=== PATIENT | male | born 1970 | race Caucasian/White ===

== ENCOUNTER 2019-01-12 07:28 | Emergency (ER) | payer OTHER ==
[2019-01-12 07:34] VITALS: RESP 18; TEMP 99.7
--- NOTE | 2019-01-12 07:52 | ED ---
General Adult HPI - General Chief complaint: Abdominal Pain Stated complaint: Groin pain Time Seen by Provider: 01/12/19 07:40 Source: patient, RN notes reviewed Mode of arrival: ambulatory Limitations: no limitations - History of Present Illness Initial comments: Patient is a 48-year-old male presented to the emergency room today with chief complaint of left testicular pain. Patient does admit that he had some discomfort when he was driving home last night. Patient states that he feels some pain radiating down the left testicle. He does admit that he does feel that it is a little swollen. Patient does admit that it's worse with movements and on palpation. Patient does admit that he noticed a bump over the summertime in the left groin area but had it checked out was told once that it could be a possible hernia. He states that the bump on away. He states he was not having any pain at that time. He states he does not feel any bump in the left groin at this time but does notice the pain down into left testicle. He denies any other complaints or symptoms. Denies any trauma or injury. Patient denies any recent fever, chills, shortness of breath, chest pain, back pain, abdominal pain, nausea or vomiting, numbness or tingling, dysuria or hematuria, headaches or visual changes, or any other complaints. - Related Data Home Medications Medication Instructions Recorded Confirmed Multivitamin [Multivitamins Adult 1 tab PO DAILY 01/12/19 01/12/19 Gummies] Previous Rx's Medication Instructions Recorded Ibuprofen [Motrin] 600 mg PO Q6HR PRN #40 day 01/12/19 Levofloxacin [Levaquin] 500 mg PO DAILY #10 tab 01/12/19 Allergies Allergy/AdvReac Type Severity Reaction Status Date / Time aspirin Allergy Rash/Hives Verified 01/12/19 08:03 Review of Systems ROS Statement: Those systems with pertinent positive or pertinent negative responses have been documented in the HPI. ROS Other: All systems not noted in ROS Statement are negative. Past Medical History Past Medical History: No Reported History History of Any Multi-Drug Resistant Organisms: None Reported Past Surgical History: Appendectomy, Orthopedic Surgery Additional Past Surgical History / Comment(s): right pinky finger surgery Past Psychological History: No Psychological Hx Reported Smoking Status: Former smoker Past Alcohol Use History: Occasional Past Drug Use History: None Reported General Exam - General Exam Comments Initial Comments: General: The patient is awake and alert, in no distress, and does not appear acutely ill. Eye: There is normal conjunctiva bilaterally. No signs of icterus. Ears, nose, mouth and throat: There are moist mucous membranes and no oral lesions. Neck: The neck is supple, there is no tenderness or JVD. Cardiovascular: There is a regular rate and rhythm. No murmur, rub or gallop is appreciated. Respiratory: Lungs are clear to auscultation, respirations are non-labored, breath sounds are equal. No wheezes, stridor, rales, or rhonchi. Gastrointestinal: Soft, non-distended, non-tender abdomen without masses or organomegaly noted. There is no rebound or guarding present. No CVA tenderness. Musculoskeletal: Normal ROM, no tenderness. Neurological: A&O x 3. CN II-XII intact, There are no obvious motor or sensory deficits. Coordination appears grossly intact. Speech is normal. Skin: Skin is warm and dry and no rashes or lesions are noted. Psychiatric: Cooperative, appropriate mood & affect, normal judgment. : Circumcised male. No lesions. Mild redness and mild swelling to the left testicle. Mildly tender on palpation. Limitations: no limitations Course Vital Signs 01/12/19 07:29 Temperature 99.7 F H Pulse Rate 100 Respiratory 18 Rate Blood Pressure 139/62 O2 Sat by Pulse 99 Oximetry Medical Decision Making - Medical Decision Making Patient's ultrasound reviewed and does show evidence for an epididymitis. No sign for torsion. Urinalysis does have 20 white cells. Patient does admit he is not worried about STDs and was discussed about treatment. Patient will be given doses of ceftriaxone and azithromycin here in the emergency room to cover. Cultures are pending. Patient will be started on antibiotics of Levaquin to cover for epididymitis. Patient advised following up with the family physician also given information for urology. Advised return for any other concerns. - Lab Data Lab Results 01/12/19 Range/Units 07:59 Urine Color Yellow Urine Appearance Clear (Clear) Urine pH 7.0 (5.0-8.0) Ur Specific [place] 1.018 (1.001-1.035) Urine Protein Negative (Negative) Urine Glucose (UA) Negative (Negative) Urine Ketones Negative (Negative) Urine Blood Small H (Negative) Urine Nitrite Negative (Negative) Urine Bilirubin Negative (Negative) Urine Urobilinogen <2.0 (<2.0) mg/dL Ur Leukocyte Esterase Moderate H (Negative) Urine RBC 6 H (0-5) /hpf Urine WBC 22 H (0-5) /hpf Urine Bacteria Occasional H (None) /hpf Urine Mucus Rare H (None) /hpf Disposition Clinical Impression: Epididymitis Disposition: HOME SELF-CARE Condition: Good Instructions (If sedation given, give patient instructions): Epididymitis (ED) Additional Instructions: Please follow up with family doctor in the next two days. Use medication as prescribed and return to the ER if any symptoms increase or worsen. Prescriptions: Levofloxacin [Levaquin] 500 mg PO DAILY #10 tab Ibuprofen [Motrin] 600 mg PO Q6HR PRN #40 day PRN Reason: Pain Is patient prescribed a controlled substance at d/c from ED?: No Referrals: None,Stated [Primary Care Provider] - 1-2 days Hossein Chandra MD [STAFF PHYSICIAN] - 1-2 days Time of Disposition: 09:44
[2019-01-12 08:23] LABS: Appearance,Urine Clear (Clear); Bacteria,Urine Occasional /hpf; Bilirubin,Urine Negative (Negative); Blood,Urine Small (Negative); Color,Urine Yellow; Glucose,Urine (UA) Negative (Negative); Ketones,Urine Negative (Negative); Leukocyte Esterase,Urine Moderate (Negative); Mucus,Urine Rare /hpf; Nitrite,Urine Negative (Negative); Protein,Urine Negative (Negative); RBC,Urine 6 /hpf (0-5); Specific Gravity,Urine 1.018 (1.001-1.035); Urobilinogen,Urine <2.0 mg/dL (<2.0); WBC,Urine 22 /hpf (0-5)
--- NOTE | 2019-01-12 09:04 | US ---
EXAMINATION TYPE: US scrotum with doppler. Grayscale and color Doppler Duplex imaging performed of t he scrotum. DATE OF EXAM: 01/12/2019 COMPARISON: NONE CLINICAL HISTORY: Pain. Pt states left testicle pain and swelling x 1 day EXAM MEASUREMENTS: TESTICLES: Right Testicle: 4.3 x 1.9 x 2.9 cm Left Testicle: 4.2 x 1.7 x 2.8 cm EPIDIDYMIS HEAD: Right Epididymis: 0.7 cm Left Epididymis: Enlarged, heterogeneous, hypervascular Doppler performed to assess for testicular vascularity; good bilateral color flow and waveforms are s een. There is no evidence of testicular torsion. Presence of hydroceles: small amount of fluid right Presence of varicoceles: No Small benign incidental scrotal mikhail inferior to right testicle= 0.3 cm IMPRESSION: Findings most compatible with left epididymitis.
[2019-01-12] MEDS ORDERED: AZITHROMYCIN 500 MG TAB PO STA (09:37)
[2019-01-12] MEDS ORDERED: cefTRIAXone 250 MG VIAL IM STA (09:37)
[2019-01-12 09:39] VITALS: BP 125/71; PULSE 86
[2019-01-13 13:56] LABS: C. trachomatis,PCR Negative (Neg,Equiv); Chlamydia trachomatis Source Urine; N. gonorrhoeae,PCR Negative (Neg,Equiv); Neisseria Source Urine
== END 2019-01-12 10:07 | disposition home or self-care (01) ==
LOC: EC 07:28
DX: N45.1 Epididymitis (principal); Z87.891 Personal history of nicotine dependence; Z88.6 Allergy status to analgesic agent; Z90.49 Acquired absence of other specified parts of digestive tract
CPT/HCPCS: 81001; 87491; 87591; 87086; 93975; 76870; 99284; 96372; J0696; 87077; 87186